=== PATIENT | female | born 1935 | race Two or more races ===

== ENCOUNTER 2022-11-04 22:12 | Inpatient (IN) | payer BC ==
[~2022-11-04] VITALS: Ht 152.4 cm; Wt 51.7 kg
[2022-11-04] MEDS ORDERED: LISI1TAB32 PO (22:21)
[2022-11-04] MEDS ORDERED: AMLO-212 PO (22:21)
[2022-11-04] MEDS ORDERED: ATOR10TA PO (22:21)
[2022-11-04 23:14] LABS: HEMATOCRIT 40.9 % (31.2-41.9); MEAN CORPUSCULAR HEMOGLOBIN 29.1 uug (24.7-32.8); MEAN CORPUSCULAR VOLUME 89.2 fL (75.5-95.3); PLATELET COUNT (AUTO) 182 K/uL (179-408)
[2022-11-04 23:32] LABS: CARBON DIOXIDE 26 mmol/L (21-32); CHLORIDE 92 mmol/L (98-107); CREATININE 0.9 mg/dL (0.6-1.3); GLUCOSE 125 mg/dL (74-106); POTASSIUM 4.6 mmol/L (3.5-5.1); UREA NITROGEN, BLOOD 16 mg/dL (7-18)
[2022-11-05] MEDS ORDERED: IV NS 1000 ML 1,000 ML IV ONE
[2022-11-05] MEDS ORDERED: IV NS 1000 ML 1,000 ML IV PRN (03:30)
[2022-11-05] MEDS ORDERED: MAGNESIUM HYDROXIDE 30 ML LIQUID UDC PO PRN (03:30)
[2022-11-05] MEDS ORDERED: NITROGLYCERIN OINT 1 GM PACKET TP ONE ×2 (03:30→03:38)
[2022-11-05] MEDS ORDERED: ONDANSETRON 4 MG/2 ML VIAL IV PRN (03:30)
[2022-11-05] MEDS ORDERED: ACETAMINOPHEN 325 MG TABLET PO PRN (03:30)
[2022-11-05] MEDS ORDERED: REMEDY ESSENTIAL ZINC PASTE 113 GM TP PRN (03:30)
[2022-11-05] MEDS ORDERED: METOPROLOL TARTRATE 50 MG TABLET PO ONE (03:30)
[2022-11-05] MEDS ORDERED: ASPIRIN 81 MG TAB.CHEW PO ONE (03:30)
[2022-11-05] MEDS ORDERED: ASPIRIN 81 MG TAB.CHEW ONE (03:38)
[2022-11-05] MEDS ORDERED: METOPROLOL TARTRATE 50 MG TABLET ONE (03:38)
[2022-11-05 05:58] VITALS: BP 102/60
[2022-11-05] MEDS ORDERED: PANTOPRAZOLE SODIUM 40 MG TABLET.DR PO SCH (07:00)
[2022-11-05 07:28] LABS: HEMATOCRIT 36.7 % (31.2-41.9); MEAN CORPUSCULAR VOLUME 89.6 fL (75.5-95.3); PLATELET COUNT (AUTO) 182 K/uL (179-408)
[2022-11-05 07:34] LABS: ALANINE AMINOTRANSFERASE 19 U/L (14-59); ALKALINE PHOSPHATASE 91 U/L (50-136); ASPARTATE AMINOTRANSFERASE 22 U/L (15-37); BILIRUBIN,TOTAL 0.5 mg/dL (0.2-1.0); CARBON DIOXIDE 27 mmol/L (21-32); CHLORIDE 96 mmol/L (98-107); CREATININE 0.8 mg/dL (0.6-1.3); GLUCOSE 86 mg/dL (74-106); MAGNESIUM 1.6 mg/dL (1.8-2.4); POTASSIUM 4.6 mmol/L (3.5-5.1); TOTAL PROTEIN, SERUM 6.3 g/dL (6.4-8.2); UREA NITROGEN, BLOOD 13 mg/dL (7-18)
[2022-11-05 08:36] LABS: CHOLESTEROL 138 mg/dL (<200); HDL CHOLESTEROL 86 mg/dL (40-60); TRIGLYCERIDES < 15 MG/DL (30-150)
[2022-11-05] MEDS ORDERED: ASPIRIN EC 81 MG TABLET.DR PO SCH (09:00)
[2022-11-05] MEDS ORDERED: AMLODIPINE 5 MG TABLET PO SCH (09:00)
[2022-11-05] MEDS ORDERED: LISINOPRIL 10 MG TABLET PO SCH (09:00)
[2022-11-05] MEDS ORDERED: HYDROCHLOROTHIAZIDE 12.5 MG CAPSULE PO SCH (09:00)
[2022-11-05 11:10] VITALS: BP 115/45
[2022-11-05] MEDS ORDERED: MAGNESIUM OXIDE 400 MG TABLET PO SCH (12:30)
[2022-11-05 13:10] LABS: CARBON DIOXIDE 26 mmol/L (21-32); CHLORIDE 95 mmol/L (98-107); CREATININE 0.8 mg/dL (0.6-1.3); GLUCOSE 126 mg/dL (74-106); POTASSIUM 4.5 mmol/L (3.5-5.1); UREA NITROGEN, BLOOD 12 mg/dL (7-18)
[2022-11-05 15:16] VITALS: BP 131/54
[2022-11-05] MEDS ORDERED: LISI10TA29 PO (15:21)
[2022-11-05] MEDS ORDERED: ATORVASTATIN 10 MG TABLET PO SCH (18:00)
== END 2022-11-05 16:15 | disposition home or self-care (01) | DRG 640 ==
LOC: ER 22:12 → TELE3 11-05 04:30
PROVIDERS: ADMIT Student in an Organized Health Care Education/Training Program; ATTEND Student in an Organized Health Care Education/Training Program
DX: E87.1 Hypo-osmolality and hyponatremia (principal); I21.A1 Myocardial infarction type 2; E44.0 Moderate protein-calorie malnutrition; I10 Essential (primary) hypertension; Z79.82 Long term (current) use of aspirin; E78.5 Hyperlipidemia, unspecified; Z68.22 Body mass index [BMI] 22.0-22.9, adult; F41.9 Anxiety disorder, unspecified; R42 Dizziness and giddiness; I95.1 Orthostatic hypotension; T50.2X5A Adverse effect of carbonic-anhydrase inhibitors, benzothiadiazides and other diuretics, initial encounter; Y92.009 Unspecified place in unspecified non-institutional (private) residence as the place of occurrence of the external cause
CPT/HCPCS: 36415; 83735; 84484; 85025; 93005; 93307; G0378; J7040